=== PATIENT | female | born 1960 | race Caucasian/White ===

== ENCOUNTER 2023-08-15 10:53 | Inpatient (IN) | payer MEDICAID ==
[~2023-08-15] VITALS: Ht 154.9 cm; Wt 89.6 kg
[~2023-08-15 10:53] MED LIST: PRED5TAB PO; RABE20TA18 PO; SIMV-341 PO; [UNRECOGNIZED DRUG - REMARK]
[2023-08-15 10:55] VITALS: BP_SYST 128; PULSE 82; RESP 16; TEMP 98.3; O2SAT 94
[2023-08-15] MEDS: NITROGLYCERIN 0.4 MG TAB.SUBL SL ONE (11:25)
[2023-08-15] MEDS: ASPIRIN 325 MG TABLET (ECOTRIN) PO ONE (11:25)
[2023-08-15 11:26] LABS: BASOPHILS % (AUTO) 0.3 % (0.0-2.0); EOSINOPHILS # (AUTO) 0.1 K/uL (0.0-0.4); EOSINOPHILS % (AUTO) 3.1 % (0.0-4.0); HEMATOCRIT 37.2 % (36-48); HEMOGLOBIN 12.5 g/dL (12.0-16.0); LYMPHOCYTES # (AUTO) 0.7 K/uL (1.0-5.5); LYMPHOCYTES % (AUTO) 19.7 % (20.5-51.5); MEAN CORPUSCULAR HEMOGLOBIN 30 pg (27-31); MEAN CORPUSCULAR HGB CONC 34 % (32-36); MEAN CORPUSCULAR VOLUME 90 fL (79.0-98.0); MONOCYTES # (AUTO) 0.4 K/uL (0.0-1.0); NEUTROPHILS # (AUTO) 2.3 K/uL (1.8-7.7); NEUTROPHILS % (AUTO) 65.9 % (40.0-70.0); PLATELET COUNT (AUTO) 226 K/uL (130-430); RED BLOOD CELL COUNT(AUTO) 4.14 MIL/uL (4.2-6.2); RED CELL DISTRIBUTION WIDTH 15.3 % (9.0-15.0); WHITE BLOOD COUNT (AUTO) 3.5 K/uL (4.8-10.8)
[2023-08-15 11:39] LABS: ANION GAP 7 (5-15); CALCIUM 8.8 mg/dL (8.4-11.0); CARBON DIOXIDE 32 mmol/L (23-29); CHLORIDE 104 mmol/L (98-107); CREATININE 0.78 mg/dL (0.55-1.30); GFR AFRICAN AMERICAN 97 mL/min (>90); GLUCOSE 86 mg/dL (74-106); SODIUM SERUM 143 mmol/L (136-145); UREA NITROGEN, BLOOD 8 mg/dL (8-21)
[2023-08-15 11:43] LABS: GFR NON AFRICAN-AMERICAN 80 mL/min (>90)
[2023-08-15] MEDS: ONDANSETRON HCL 4 MG/2 ML VIAL IVP ONE (12:18)
[2023-08-15] MEDS: MORPHINE 2 MG/ML INJ. SYRINGE IVP ONE (12:19)
[2023-08-15] MEDS ORDERED: iohexoL 350 mgI/mL, 100 ML INFUS..BTL IV ONE (12:28)
[2023-08-15] MEDS: LORATADINE 10 MG TABLET PO ONE (12:49)
[2023-08-15] MEDS: methylPREDNISolone SOD SUCC/PF 62.5 MG/ML VIAL IVP ONE (12:49)
[2023-08-15 13:04] LABS: PROTHROMBIN TIME 9.9 SECS (9.5-12.5)
[2023-08-15] MEDS ORDERED: DULO60CA65 PO (13:36)
[2023-08-15] MEDS ORDERED: CETI-355 PO (13:36)
[2023-08-15] MEDS ORDERED: PANT40TA45 PO (13:36)
[2023-08-15] MEDS ORDERED: ATOR-1 PO (13:36)
[2023-08-15] MEDS ORDERED: APIX5TAB PO (13:36)
[2023-08-15] MEDS ORDERED: NORT25CA PO (13:36)
[2023-08-15] MEDS ORDERED: ALEN70TA27 PO (13:36)
[2023-08-15] MEDS ORDERED: TRAZ150T77 PO (13:36)
[2023-08-15] MEDS ORDERED: VENL150C53 PO (13:36)
[2023-08-15] MEDS ORDERED: CARV6.2554 PO (13:36)
[2023-08-15] MEDS ORDERED: ATOG30TA PO (13:36)
[2023-08-15] MEDS ORDERED: ALENDRONATE SODIUM 70 MG TABLET (FOSAMAX) PO SCH (15:15)
[2023-08-15 16:00] VITALS: BP_SYST 153; PULSE 69; RESP 16; TEMP 97.4; O2SAT 98
[2023-08-15 16:42] VITALS: BP_SYST 153; PULSE 69; RESP 16; TEMP 97.4; O2SAT 98
[2023-08-15] MEDS ORDERED: NALOXONE HCL 0.4 MG/ML AMP (NARCAN) IVP PRN (18:15)
[2023-08-15] MEDS: HYDROmorphone 1 MG/ML INJ. CARTRIDGE IVP PRN (19:37)
[2023-08-15 20:00] VITALS: BP_SYST 125; PULSE 80; RESP 17; TEMP 96.6; O2SAT 95
[2023-08-15] MEDS: ALPRAZolam 0.25 MG TABLET PO PRN (20:52)
[2023-08-15] MEDS ORDERED: NON-FORMULARY MEDICATION (Apixaban (Eliquis) 1 TAB) PO SCH (21:00)
[2023-08-15] MEDS: CARVEDILOL 6.25 MG TABLET (COREG) PO SCH (21:38)
[2023-08-15] MEDS: NORTRIPTYLINE HCL 25 MG CAPSULE PO SCH (21:39)
[2023-08-15] MEDS: VENLAFAXINE HCL 50 MG TABLET PO SCH (21:39)
[2023-08-15] MEDS: traZODone HCL 50 MG TABLET (DESYREL) PO SCH (21:39)
[2023-08-15] MEDS: APIXABAN 2.5 MG TABLET PO SCH (21:41)
[2023-08-15] MEDS ORDERED: TEMAZEPAM 15 MG CAPSULE PO PRN (23:45)
[2023-08-16] VITALS (9 sets, daily range): BP systolic 98–130; PULSE 70–92; RESP 16–18; TEMP 96.4–99.2; O2SAT 91–95
[2023-08-16 07:09] LABS: BASOPHILS % (AUTO) 0.1 % (0.0-2.0); HEMATOCRIT 38.3 % (36-48); LYMPHOCYTES # (AUTO) 0.5 K/uL (1.0-5.5); LYMPHOCYTES % (AUTO) 7.9 % (20.5-51.5); MEAN CORPUSCULAR HEMOGLOBIN 30 pg (27-31); MEAN CORPUSCULAR HGB CONC 34 % (32-36); MEAN CORPUSCULAR VOLUME 90 fL (79.0-98.0); MONOCYTES # (AUTO) 0.3 K/uL (0.0-1.0); MONOCYTES % (AUTO) 4.5 % (1.7-9.3); NEUTROPHILS # (AUTO) 5.8 K/uL (1.8-7.7); NEUTROPHILS % (AUTO) 87.5 % (40.0-70.0); PLATELET COUNT (AUTO) 234 K/uL (130-430); RED BLOOD CELL COUNT(AUTO) 4.26 MIL/uL (4.2-6.2); RED CELL DISTRIBUTION WIDTH 15.1 % (9.0-15.0); WHITE BLOOD COUNT (AUTO) 6.6 K/uL (4.8-10.8)
[2023-08-16 07:42] LABS: ALBUMIN 3.1 g/dL (3.4-4.8); CALCIUM 8.6 mg/dL (8.4-11.0); CREATININE 0.69 mg/dL (0.55-1.30); FREE T4 (FREE THYROXINE) 0.7 ng/dL (0.6-1.6); POTASSIUM 4.5 mmol/L (3.5-5.1); THYROID STIMULATING HORMONE 0.43 uIu/mL (0.34-4.82); TOTAL BILIRUBIN 0.4 mg/dL (0.0-1.0); TOTAL PROTEIN, SERUM 5.7 g/dL (6.4-8.3)
[2023-08-16 08:29] LABS: BILIRUBIN,URINE NEGATIVE (NEGATIVE); BLOOD, URINE NEGATIVE (NEGATIVE); CLARITY/URINE CLEAR (CLEAR); COLOR,URINE YELLOW (YELLOW); GLUCOSE,URINE NEGATIVE (NEGATIVE); KETONES,URINE NEGATIVE (NEGATIVE); LEUKOCYTE ESTERASE ,URINE NEGATIVE (NEGATIVE); NITRITE, URINE NEGATIVE (NEGATIVE); PH,URINE 7.5 (5.0-8.0); PROTEIN URINE NEGATIVE (NEGATIVE); UROBILINOGEN,URINE 0.2 (0.2-1.0)
[2023-08-16 08:47] LABS: BARBITURATE, URINE NEGATIVE (NEG <=200); BENZODIAZEPINE, URINE POSITIVE (NEG <=150); OPIATE, URINE POSITIVE (NEG <=100); UR TRICYCLIC ANTIDEPRESSANTS POSITIVE (NEG <=300)
[2023-08-16 08:48] LABS: CANNABINOID, URINE NEGATIVE (NEG <=50); COCAINE, URINE NEGATIVE (NEG <=150); METHAMPHETAMINES SCREEN,URINE NEGATIVE (NEG <=500); PHENCYCLIDINE SCREEN,URINE NEGATIVE (NEG <=25); URINE AMPHETAMINE NEGATIVE (NEG <=500); URINE METHADONE NEGATIVE (NEG <=200); URINE OXYCODONE SCREEN NEGATIVE (NEG <=100)
[2023-08-16] MEDS ORDERED: [UNRECOGNIZED DRUG - REMARK] PO SCH (09:00)
[2023-08-16] MEDS ORDERED: VENLAFAXINE HCL PO SCH (09:00)
[2023-08-16] MEDS: DULoxetine HCL 30 MG CAPSULE.DR (CYMBALTA) PO SCH (09:15)
[2023-08-16] MEDS: ATORVASTATIN 20 MG TABLET PO SCH (09:15)
[2023-08-16] MEDS: predniSONE 5 MG TABLET PO SCH (09:15)
[2023-08-16] MEDS: PANTOPRAZOLE SODIUM 40 MG TAB PO SCH (09:16)
[2023-08-16] MEDS ORDERED: NALOXONE HCL 0.4 MG/ML AMP (NARCAN) IVP PRN ×2 (13:15→13:30)
[2023-08-16] MEDS ORDERED: ACETAMINOPHEN 325 MG TABLET PO PRN (13:30)
[2023-08-16] MEDS: HYDROmorphone 2 MG TAB PO PRN (13:32)
[2023-08-17 01:16] VITALS: BP_SYST 131; PULSE 67; RESP 18; TEMP 97.7; O2SAT 93
[2023-08-17] MEDS: HYDROmorphone 2 MG TAB PO PRN (06:56)
[2023-08-17 08:00] VITALS: BP_SYST 102; PULSE 85; RESP 17; TEMP 97.8; O2SAT 90
[2023-08-17] MEDS: LORATADINE 10 MG TABLET PO SCH (08:59)
[2023-08-17 11:35] VITALS: BP_SYST 103; PULSE 80; RESP 16; TEMP 97.2; O2SAT 94
[2023-08-17 16:24] VITALS: BP_SYST 110; PULSE 74; RESP 17; TEMP 97.7; O2SAT 94
[2023-08-18 01:24] VITALS: BP_SYST 110; PULSE 61; RESP 17; TEMP 97.7; O2SAT 96
[2023-08-18 07:32] VITALS: BP_SYST 126; PULSE 77; RESP 17; TEMP 97; O2SAT 96
[2023-08-18] MEDS: HYDROcodone/ACETAMIN 10-325 MG TAB PO PRN (07:54)
[2023-08-18 11:50] VITALS: BP_SYST 97; PULSE 68; RESP 18; TEMP 97.2; O2SAT 94
[2023-08-18 16:27] VITALS: BP_SYST 108; PULSE 86; RESP 19; TEMP 96.8; O2SAT 93
[2023-08-18 19:00] VITALS: O2SAT 95
[2023-08-18 20:00] VITALS: BP_SYST 111; PULSE 77; RESP 18; TEMP 98.1; O2SAT 95
[2023-08-19] VITALS: BP_SYST 112; PULSE 65; RESP 18; TEMP 97.7; O2SAT 95
[2023-08-19 04:00] VITALS: BP_SYST 108; PULSE 61; RESP 18; TEMP 97.5; O2SAT 95
[2023-08-19 06:13] LABS: BASOPHILS % (AUTO) 0.3 % (0.0-2.0); EOSINOPHILS # (AUTO) 0.2 K/uL (0.0-0.4); EOSINOPHILS % (AUTO) 3.2 % (0.0-4.0); HEMATOCRIT 38.4 % (36-48); HEMOGLOBIN 13.1 g/dL (12.0-16.0); LYMPHOCYTES # (AUTO) 1.1 K/uL (1.0-5.5); LYMPHOCYTES % (AUTO) 22.9 % (20.5-51.5); MEAN CORPUSCULAR HEMOGLOBIN 31 pg (27-31); MEAN CORPUSCULAR HGB CONC 34 % (32-36); MEAN CORPUSCULAR VOLUME 90 fL (79.0-98.0); MONOCYTES # (AUTO) 0.4 K/uL (0.0-1.0); MONOCYTES % (AUTO) 9.1 % (1.7-9.3); NEUTROPHILS # (AUTO) 3.1 K/uL (1.8-7.7); NEUTROPHILS % (AUTO) 64.5 % (40.0-70.0); PLATELET COUNT (AUTO) 254 K/uL (130-430); RED BLOOD CELL COUNT(AUTO) 4.28 MIL/uL (4.2-6.2); RED CELL DISTRIBUTION WIDTH 15.3 % (9.0-15.0); WHITE BLOOD COUNT (AUTO) 4.8 K/uL (4.8-10.8)
[2023-08-19 06:53] LABS: ALBUMIN 3.2 g/dL (3.4-4.8); CALCIUM 8.8 mg/dL (8.4-11.0); CREATININE 0.83 mg/dL (0.55-1.30); TOTAL BILIRUBIN 0.7 mg/dL (0.0-1.0)
[2023-08-19 08:00] VITALS: BP_SYST 112; PULSE 85; RESP 18; TEMP 97; O2SAT 98
[2023-08-19 08:42] VITALS: O2SAT 98
[2023-08-19 12:00] VITALS: BP_SYST 106; PULSE 61; RESP 18; TEMP 97.8; O2SAT 95
[2023-08-19 14:24] VITALS: BP_SYST 110; PULSE 64; RESP 18; TEMP 97.8; O2SAT 96
== END 2023-08-19 15:25 | disposition home health service (06) | DRG 203 ==
LOC: SED 10:53 → STU 14:36
PROVIDERS: ADMIT Internal Medicine; ATTEND Internal Medicine
DX: R07.89 Other chest pain (principal); R65.10 Systemic inflammatory response syndrome (SIRS) of non-infectious origin without acute organ dysfunction; E66.9 Obesity, unspecified; F32.A Depression, unspecified; K21.9 Gastro-esophageal reflux disease without esophagitis; I10 Essential (primary) hypertension; E78.5 Hyperlipidemia, unspecified; J44.9 Chronic obstructive pulmonary disease, unspecified; Z79.899 Other long term (current) drug therapy; Z68.37 Body mass index [BMI] 37.0-37.9, adult; Z86.711 Personal history of pulmonary embolism; Z79.01 Long term (current) use of anticoagulants; M79.7 Fibromyalgia
CPT/HCPCS: 36415; 70450; 70450-TC; 70496; 70498; 70551; 71045; 73560; 80048; 80053; 80061; 80307; 81001; 81003; 82948; 83037; 83735; 83880; 84439; 84443; 84484; 85025; 85610; 85730; 93005; 93306; 96374; 96375; 97110-GP; 97116-GP; 97530-GP; 99291; G0378; J1170; J2270; J2405; J2930; J7512; Q9967